=== PATIENT | male | born 1990 | race Caucasian/White ===

== ENCOUNTER 2018-08-27 12:48 | Emergency (ER) | payer OTHER ==
[~2018-08-27] VITALS: Ht 180.3 cm; Wt 102.1 kg
--- NOTE | 2018-08-27 13:19 | Emergency Room Report ---
History of Present Illness General Chief Complaint: General Complaint Source: Patient Present Illness HPI 28-year-old male presents ER with anxiety and low energy levels the past several weeks. Reports history of similar symptoms in the past.. reports symptoms began after arriving a treatment center. Denies fever, chest pain, shortness breath, abdominal pain. denies vomiting or diarrhea. Reports noting mild "salt like substance" in his urine. Repeat/sexual activity 2 months ago, does not know last time he was tested for gonorrhea or chlamydia or other STI, patient has lots of questions regarding STI treatment and evaluation. Denies dysuria, hematuria. Denies testicular pain or swelling, denies rash. reports currently being states treated as outpatient for alcohol treatment. Denies recent alcohol or drug use. denies psychiatric history, denies history of anxiety or panic attacks. Denies suicidal or homicidal ideation. Denies history of cardiac disease. denies dizziness or fainting.patient wants no symptoms related to head injury from "about" 10 years ago, denies recent head injury or trauma. reports feeling "enclosed" when the doors are closed. Allergies: Coded Allergies: No Known Allergies (Unverified , 08/27/18) Patient History Past Medical History: see triage record Reviewed Nursing Documentation: PMH: Agreed; PSxH: Agreed Nursing Documentation-PMH Past Medical History: No Stated History Review of Systems All Other Systems: negative except mentioned in HPI Physical Exam Vital Signs Date Time Temp Pulse Resp B/P (MAP) Pulse Ox O2 Delivery O2 Flow Rate FiO2 08/27/18 12:52 98.5 90 15 152/98 95 Room Air 98.4 Sp02 EP Interpretation: reviewed, normal General Appearance: well appearing, no apparent distress, alert, GCS 15, non- toxic Head: normocephalic, atraumatic Eyes: bilateral eye normal inspection, bilateral eye PERRL ENT: hearing grossly normal, normal pharynx, no angioedema, normal voice, uvula midline, moist mucus membranes Neck: full range of motion Respiratory: lungs clear, normal breath sounds, no rhonchi, no respiratory distress, no accessory muscle use, no wheezing, speaking full sentences Cardiovascular #1: regular rate, rhythm, no edema Gastrointestinal: non tender, soft, no mass, non-distended, no guarding, no rebound Genitourinary: no CVA tenderness Musculoskeletal: back normal, digits/nails normal, gait/station normal, normal range of motion, non-tender Neurologic: alert, oriented x3, responsive, web production designer III-XII nml as tested, motor strength/tone normal, SLR negative, sensory intact, cerebellar normal, normal gait, speech normal Psychiatric: mood/affect normal Skin: no rash Lymphatic: no adenopathy Medical Decision Making PA Attestation Dr. Paz is my supervising Physician whom patient management has been discussed with. Diagnostic Impression: Primary Impression: Encounter for screening examination for sexually transmitted disease Additional Impression: Feeling anxious ER Course Pt. presents to the ED c/o feeling anxious and concern for STI. Ddx considered but are not limited to gonorrhea, chalmydia, cystitis, pylonephritis, SC, anxiety, behavioral disorder. Vital signs: are WNL, pt. is afebrile Ordered UA and abx. ER COURSE: Cranial nerves intact status, no focal neuro deficits, no tenderness to palpation over her skull, no bony depressions, no skull depression, no hematoma , no recent injury or trauma, does not require CT head imaging at this time. EKG shows no ST elevations or arrhythmia, patient denies chest pain, shortness of breath, low suspicion for SC or other cardiac etiology causing symptoms, does not require cardiac workup at this time, instructed patient to follow up outpatient with primary care provider for further treatment and evaluation as needed. Discuss referral at that time as needed. ordered labs on patient, patient declined blood work at this time.advised patient to follow up outpatient with primary care provider for further testing and treatment. patient is resting comfortably in no acute distress, nontoxic appearing, physical exam benign, cranial nerves intact as tested, no focal neuro deficits, lungs clear to auscultation, no abdominal tenderness to palpation, does not require labs or imaging at this time, patient will patient for further treatment and referral. Advised patient to follow-up and discuss anxious feeling. Provide patient with contact information for mental health urgent care. UA results unremarkable, shows no signs of infection, does not require further treatment or imaging at this time. Provided patient with Rocephin and Azithromycin in the ER. Informed patient medications will cover for gonorrhea and chlamydia, needs further follow-up evaluation and possible treatment of other sexual transmitted infections. Advised to use safe sex practices including but not limited to use of condoms. Avoid sexual activity for the next weeks. Instructed patient to follow up with STI clinic and/or PCP for STI evaluation and further treatment as necessary. Instructed patient to inform partners of needs for evaluation and treatment of possible infections. DISCHARGE: Patient is resting comfortably, in no acute distress, nontoxic appearing, talking without difficulty. Patient to take medications as instructed Will provide with patient care instructions and any necessary prescriptions. Care plan and follow-up instructions provided. Patient instructed to follow-up with primary care provider in 3 - 5 days. Patient questions asked and answered. Patient reports understanding and agreement to treatment plan. ER precautions given. Patient instructed to return to ER immediately for any new or worsening of symptoms including but not limited to increasing SOB, persistent fever. - Please note that this Emergency Department Report was dictated using [employer] tailor technology software, occasionally this can lead to erroneous entry secondary to interpretation by the dictation equipment. Labs Test 08/27/18 13:20 Urine Color Pale yellow Urine Appearance Clear Urine pH 6 (4.5-8.0) Urine Specific [place] 1.020 (1.005-1.035) Urine Protein Negative (NEGATIVE) Urine Glucose (UA) Negative (NEGATIVE) Urine Ketones Negative (NEGATIVE) Urine Blood 2+ (NEGATIVE) Urine Nitrite Negative (NEGATIVE) Urine Bilirubin Negative (NEGATIVE) Urine Urobilinogen Normal MG/DL (0.0-1.0) Urine Leukocyte Esterase Negative (NEGATIVE) Urine RBC 0-2 /HPF (0 - 0) Urine WBC 0-2 /HPF (0 - 0) Urine Squamous Epithelial Cells Occasional /LPF Urine Bacteria Occasional /HPF (NONE) EKG Diagnostic Results Rate: normal Rhythm: NSR ST Segments: other ASA given to the pt in ED: No PA Scribe Text Jesse Tabares PA-C Rhythm Strip Diag. Results EP Interpretation: yes Rate: 73 Rhythm: NSR, no PVC's, no ectopy PA Scribe Text Jesse Tabares PA-C Last Vital Signs Date Time Temp Pulse Resp B/P (MAP) Pulse Ox O2 Delivery O2 Flow Rate FiO2 08/27/18 12:52 98.5 90 15 152/98 95 Room Air 98.4 Disposition: HOME, SELF-CARE Condition: Stable Patient Instructions: Dizziness, [id number], Generalized Anxiety Disorder, Head Injury, Adult, [id number], Sexually Transmitted Disease Additional Instructions: Followup with primary care provider and followup with STI clinic for further evaluation and treatment. Follow-up with primary care provider outpatient testing, treatment, and referral for symptom relief. Follow up with mental health professional and mental health urgent care as needed for anxious feelings. Alert sexual partners for need for evaluation and treatment. Wear condoms during sex. Avoid sexual activity for 2 weeks. Drink plenty of fluids. Take OTC Tylenol for pain or headache symptoms at present. Patient questions asked and answered. ER precautions given, patient instructed to return to ER immediately for any new or worsening of symptoms. Joel Tabares Aug 27, 2018 13:19
[2018-08-27] MEDS ORDERED: Azithromycin 250mg tab ORAL ONE (13:30)
[2018-08-27] MEDS ORDERED: Lidocaine 1% MPF 10mg/ml 5ml INJ ONE (13:30)
[2018-08-27 13:57] VITALS: BP 152/98
[2018-08-27 13:58] LABS: APPEARANCE,URINE CLEAR; BILIRUBIN, URINE NEGATIVE (NEGATIVE); COLOR,URINE PALE YELLOW; GLUCOSE, URINE (UA) NEGATIVE (NEGATIVE); KETONES,URINE NEGATIVE (NEGATIVE); LEUKOCYTE ESTERASE ,URINE NEGATIVE (NEGATIVE); NITRITE,URINE NEGATIVE (NEGATIVE); PH,URINE 6 (4.5-8.0); PROTEIN,URINE NEGATIVE (NEGATIVE); UROBILINOGEN,URINE NORMAL MG/DL (0.0-1.0)
[2018-08-27 14:49] VITALS: BP 145/88
--- NOTE | 2018-08-28 14:54 | Cardiology Report ---
APPROVED REPORT EKG Measurement Heart [id number] Normal sinus rhythm Minimal voltage criteria for LVH, may be normal variant Borderline ECG
== END 2018-08-27 14:51 | disposition home or self-care (01) ==
LOC: EMR 13:27
DX: Z11.3 Encounter for screening for infections with a predominantly sexual mode of transmission (principal); F41.9 Anxiety disorder, unspecified
CPT/HCPCS: 81003; 93005; 99283; J0696